=== PATIENT | male | born 1965 | race Caucasian/White ===

== ENCOUNTER 2020-03-14 07:48 | Outpatient (CLI) | payer BC, SELFPAY ==
--- NOTE | 2020-03-14 07:55 | CT_ITS ---
WS: [id number] CT CHEST WITHOUT INTRAVENOUS CONTRAST HISTORY: LUNG NODULE TECHNIQUE: Contiguous 5 mm axial imaging performed on the thorax. Coronal and sagittal reformats are submitted. All CT scans at [facility] use at least one of these dose optimization techniq ues: automated exposure control; mA and/or kV adjustment per patient size (includes targeted exams wh ere dose is matched to clinical indication); or iterative reconstruction. CONTRAST: None DLP: 939.04 mGycm COMPARISON: Chest radiograph 02/20/2020 Lungs and central airway: Lungs are well-aerated. There are a few scattered benign granulomata which are calcified. No pulmonary mass or nodule. Pleura: Normal. No pleural effusion. Heart and pericardium: Normal size heart with no pericardial effusion. Mediastinum and sergio: Benign calcified lymph nodes in the hilar regions bilaterally. There are a few benign-appearing lymph nodes in the mediastinum and sergio measuring up to 7 mm diameter. At the RIGHT hilum the previously described nodule is not identified. This study was performed without IV contrast which does limit evaluation for subtle nodules and lymph nodes. Vessels: Aorta is normal. Pulmonary artery is very slightly enlarged. Chest wall and lower neck: No soft tissue masses. Upper abdomen: Small hiatal hernia. Hepatic steatosis. Visualized gallbladder is negative. No adrenal mass. Osseous structures: No destructive process. CT/CT chest wo con [id number] IMPRESSION: 1. No pulmonary mass or nodule on this unenhanced study. Noncontrast evaluatio n limits evaluation of the hilar regions. 2. Mildly enlarged pulmonary artery. Correlate for early changes of pulmonary hypertension. 3. Small hiatal hernia. 4. Prior granulomatous disease.
== END 2020-03-14 07:49 | disposition home or self-care (01) ==
LOC: RADWPI 07:52
PROVIDERS: PCP Internal Medicine; Visit Provider Internal Medicine
DX: R91.1 Solitary pulmonary nodule (principal); K44.9 Diaphragmatic hernia without obstruction or gangrene; D71 Functional disorders of polymorphonuclear neutrophils
CPT/HCPCS: 71250

== ENCOUNTER 2020-12-23 15:31 | Outpatient (CLI) | payer BC, SELFPAY | END 2020-12-23 15:32 | disposition home or self-care (01) | LOC: SLEEP 15:32 | PROVIDERS: PCP Internal Medicine; Visit Provider Internal Medicine | DX: G47.10 Hypersomnia, unspecified (principal) | CPT/HCPCS: G0399 ==

== ENCOUNTER 2021-06-10 08:56 | Outpatient (CLI) | payer BC, SELFPAY ==
[2021-06-10 10:38] VITALS: BMI 37.3
--- NOTE | 2021-06-10 10:42 | NMCV_ITS ---
NM jadiel perf SPECT r/s* [id number] Vikram Garces Age: 55 Gender: M : 1965 Exam Date: 06/10/2021 10:42 Ordering Phys: All Lubin MD Technologist: BUNNY Lal Exam Location: [facility] Indications: CHEST PAIN STRESS TEST Please see separate stress test report in [facility] for full findings IMAGE PROTOCOL Rest/Stress 1 Lexiscan Day Radiopharmaceutical Dose (mCi) Administration Site Administered by Rest: Tc-99m 10.4 IV BUNNY Cook Sestamibi Stress:Tc-99m 32.0 IV BUNNY Cook Sestamibi Rest: 10-Jun-2021 60 Discovery 630 Stress: 10-Jun-2021 30 Discovery 630 0.4mg Lexiscan. Images obtained in supine and prone position. SPECT RESULTS Technical Quality: Excellent Raw Data Analysis: Normal Image Corrections: No attenuation or motion correction applied Summed Stress Score: 0 Summed Rest Score: 1 Summed Difference Score: 0 PERFUSION FINDINGS There is homogenous radiotracer uptake throughout the myocardium. No evidence of ischemia FUNCTIONAL RESULTS (calculated via Gated SPECT) Stress Image LV EF (%): 55 Stress EDV (mL):130 TID: 0.95 Stress ESV (mL):58 FUNCTIONAL FINDINGS: There is normal left ventricular systolic function. IMPRESSIONS 1. Normal myocardial perfusion imaging with no evidence of ischemia 2. LV systolic function is normal Jarett Head MD (Electronically Signed) Final Date: 14 June 2021 11:55 S
--- NOTE | 2021-06-10 10:42 | ECG_ITS ---
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 Interpretive Statements NAME OF STUDY: LEXISCAN SESTAMIBI STRESS TEST INDICATION: [Shortness of Breath, ] Procedure: At the baseline, the blood pressure was 147/103 mmHg with a heart rate of 74 bpm. The electrocardiogram showed normal sinus rhythm, normal axis with normal ST and T's. The Lexiscan was infused over a period of 20 seconds. A total of 0.4 mg of Lexiscan was infused. The stress phase was continued for a total of 5 minutes. Heart rate was at the end of stress phase was 79 bpm and a blood pressure of 149/100 mmHg. The EKG at the peak infusion revealed since normal sinus rhythm with no significant ST-T wave changes. Sestamibi was injected 20 seconds after the Lexiscan infusion. Blood pressure at the end of recovery phase was 118/100mmHg with a heart rate of 81 bpm. Conclusion: 1. Normal EKG response to Lexiscan infusion 2. No Lexiscan induced chest pain or cardiac arrhythmia. 3. Normal blood pressure and heart rate response. 4. Sestamibi/sestamibi perfusion scan pending; see separate report. Electronically Signed On 07-12-2021 21:21:28 CDT by Jarett Head M.D. [id number]
[2021-06-10 11:40] VITALS: BP 118/100; PULSE 79
[2021-06-10] MEDS: regadenoson 0.4 Mg/5 ml Syringe IVP (11:41)
== END 2021-06-10 08:57 | disposition home or self-care (01) ==
PROVIDERS: PCP Internal Medicine; Visit Provider Family Medicine
DX: R07.9 Chest pain, unspecified (principal); R06.02 Shortness of breath
CPT/HCPCS: 78452; 93017; A9500; J2785

== ENCOUNTER 2021-11-27 07:42 | Outpatient (CLI) | payer OTHER, SELFPAY ==
--- NOTE | 2021-11-27 08:41 | XR_ITS ---
WS: [id number] Exam: XR lumbar spine 6V w f/e [id number] Date/Time of Exam: 11/27/2021 9:01 AM Reason For Exam: Lumbar radiculopathy right No acute fracture or dislocation. Disc spaces are relatively well maintained. Posterior elements are intact. Mild spondylosis. No significant flexion or extension instability. XR/XR lumbar spine 6V w f/e [id number] IMPRESSION: 1. No fracture or malalignment. No instability. 2. Minimal degenerative changes.
== END 2021-11-27 07:43 | disposition home or self-care (01) ==
LOC: RAD 07:49
PROVIDERS: PCP Family Medicine; Visit Provider Family Medicine
DX: M54.16 Radiculopathy, lumbar region (principal)
CPT/HCPCS: 72114